=== PATIENT | female | born 1940 | race Caucasian/White ===

== ENCOUNTER 2019-04-02 22:01 | Inpatient (IN) ==
[2019-04-03] MEDS ORDERED: Naloxone 0.4 MG/ML INJ IVP PRN (00:17)
--- NOTE | 2019-04-03 01:43 | Internal Med History&Physical ---
Date of Encounter: 04/03/19 Time of Encounter: 01:42 Internal Medicine - H&P: HPI Chief complaint: Syncope History of present illness: Ms. Llamas is a 78 year old female with a past medical history of hyperlipidemia, hypertension, kidney disease, valvular heart disease and recent diagnosis of atrial fibrillation who initially presented to [facility] after a syncopal event earlier today resulting in a laceration of her scalp. Patient states that earlier today she was folding some laundry, and the next thing she knew she was on the floor. Patient is unsure or has to whether she lost consciousness or not. The only symptom she recalls prior to the incident was intermittent shortness of breath which she states has been ongoing for some time. Patient denies any chest pain, palpitations, dizziness/lightheadedness, history of blood clots or previous episodes of syncope. Further denies any orthopnea, PND, increased lower extremity edema or weight gain. No reports of one sided weakness. Her hydrochlorothiazide was discontinued last month. Patient is currently on Lasix and alternates between a 20 mg and 40 mg dose as needed. Patient was recently evaluated for new onset atrial fibrillation back in February at [facility]. Echocardiogram at that time showed an EF of 50% and valvular disease with moderate mitral stenosis, mitral regurgitation, aortic reg urgitation and severe pulmonary hypertension. Patient's metoprolol dose was increased. Eliquis was started for CVA prophylaxis but was discontinued due to history of significant bleeding on blood thinners. Patient is not on aspirin for the same reason. Patient states that she will be following with Dr. Jimenez for the first time this coming Monday. She has been seeing Dr. Cantor up to this point. At [place] patient was found to have a heart rate in the 160s with EKG demonstrating A. fib with RVR. Patient was started on a Cardizem drip. [place] were placed to the laceration on the scalp. Laboratory workup was notable for a creatinine of 1.86 and elevated troponin of 0.14. Imaging was unremarkable. Heart rate was subsequently controlled on Cardizem drip. Patient was given a one-time dose of Lasix 40 mg IV push and patient was transferred here for further evaluation. On my assessment patient was sitting upright in bed in no acute distress. Currently on Cardizem drip with heart rate in the 90s. Past Med Surg Social Fam HX - Past Medical History Medical history: hyperlipidemia, hypertension, renal disease (Chronic renal insufficiency), valvular heart disease Additional medical history: WEARS HOME 02 AT 2LPM VIA [place] Psychiatric history: no psych history - Past Surgical History Additional surgical history: WISDOM TEETH - Social History Smoking Status: Never smoker Smokeless Tobacco Status: No Alcohol use: none, rarely Drug use: none Internal Medicine - H&P: Meds Calcium Carb/Magnesium Ox,Carb [Asher-Mag Tablet Chewable] 1 tab PO DAILY 04/03/19 [History] Cod Liver Oil 1 cap PO DAILY 04/03/19 [History] Estradiol [Estrace] 1 mg PO DAILY 04/03/19 [History] Fluticasone Propionate Nasal [Flonase] 2 spr NS DAILY PRN 04/03/19 [History] Furosemide [Lasix] 20 mg PO Q48H 04/03/19 [History] Furosemide [Lasix] 40 mg PO Q48H 04/03/19 [History] Metoprolol [Lopressor] 25 mg PO HS 04/03/19 [History] Montelukast [Singulair] 10 mg PO HS 04/03/19 [History] Potassium Chloride 20 meq PO DAILY 04/03/19 [History] Zinc [Zinc Chelated] 50 mg PO DAILY 04/03/19 [History] Allergy/AdvReac Type Severity Reaction Status Date / Time apixaban [From Eliquis] AdvReac BLEEDING Verified 04/03/19 14:10 aspirin AdvReac Nose Bleed Verified 04/02/19 19:42 NSAIDS (Non-Steroidal AdvReac Nose Bleed Verified 04/02/19 19:42 Anti-Inflamma All Systems PM: A 10-system review of systems was performed and is negative for pertinent findings except as documented above in the HPI. - Constitutional Constitutional: no chills, no fever(s), no night sweats - EENT Eyes: no change in vision, no discharge, no pain, no photophobia Ears: no ear discharge, no ear pain, no tinnitus Nose, mouth and throat: no dysphagia, no nasal discharge, no neck pain, no sore throat - Cardiovascular Cardiovascular ROS IM: no chest pain, no diaphoresis, no dyspnea, no lighthead edness, no palpitations, no syncope - Respiratory Respiratory: no cough, no dyspnea, no wheezing, no excessive phlegm production - Gastrointestinal Gastrointestinal: no abdominal pain, no diarrhea, no hematemesis, no hemat ochezia, no melena, no nausea, no vomiting - Genitourinary Genitourinary: no change in urinary stream, no dysuria, no flank pain, no hematuria - Musculoskeletal Musculoskeletal ROS IM: no numbness, no tingling - Integumentary Integumentary IM: no rash, no unusual bruising - Neurological Neurological ROS: no confusion, no convulsions, no focal weakness, no numbness, no tingling, no tremor(s) - Hematologic/Lymphatic Hematologic/Lymphatic: no easy bruising - Constitutional Vitals: Temp Pulse Resp BP Pulse Ox 97.8 F 96 18 141/82 99 04/03/19 00:07 04/03/19 00:07 04/03/19 00:07 04/03/19 00:07 04/03/19 00:07 Exam: General: Alert and oriented 3 in no acute distress Skin:Normal color, no rash, no lesions. HEENT:EOM, pupils equal, round and reactive. Cardiovascular:Normal S1 & S2, no rubs, murmurs or gallops. No JVD. Pulse irregularly irregular Lungs:Normal breath sounds, left-sided basilar crackles Abdomen:Soft, non-tender, no rigidity. Extremities: 1-2+ pitting edema of the lower extremities bilaterally. Neurological:Normal cognition and motor skills. Pulses:Carotid and radial pulses normal +2. Rest of the physical exam is non contributory Internal Med - H&P Results - Labs CBC & Chem 7: 04/03/19 02:06 04/03/19 02:06 - Assessment and Plan (1) Syncope Current Visit: No Status: Acute Assessment and plan: Patient presenting with unwitnessed syncopal episode. No presyncopal symptoms aside from shortness of breath which patient states has been ongoing since at least February. Found to have atrial fibrillation with rapid ventricular response with a heart rate in the 160s. Patient also has significant underlying valvular heart disease with recent echo in February of this year showing an EF of 50% with mitral regurgitation and mitral stenosis; mild to moderate aortic regurgitation; moderate tricuspid regurgitation and severe pulmonary hypertension. Review of EKG shows atrial fibrillation with RVR. No evidence of ischemic changes on EKG. Repeat EKG performed here shows atrial fibrillation with a heart rate of 100 in the absence of any ischemic findings. Patient did have an elevated troponin of 0.14. Patient denied any chest pain. Etiology of patient's syncope likely multifactorial in the setting of A. fib with RVR and underlying valvular heart disease. Patient's elevated troponin I suspect is secondary to demand ischemia. -Telemetry -Trend troponin -We will obtain carotid duplex -Consult to cardiology Qualifiers: Syncope type: unspecified Qualified Code(s): R55 - Syncope and collapse (2) Atrial fibrillation with rapid ventricular response Current Visit: No Status: Acute Assessment and plan: Patient found to have atrial fibrillation with RVR with a heart rate in the 160s. Patient was started on a Cardizem drip at [place] and transferred here for further evaluation. Repeat EKG shows atrial fibrillation with a heart rate of 100. -Continue on Cardizem drip -We will consult cardiology for further adjustment in patient's by mouth beta b locker moving forward. (3) Acute kidney injury Current Visit: Yes Status: Acute Assessment and plan: Patient found to have a creatinine of 1.8. Baseline appears to be around 1.2. Patient received a one-time dose of Lasix 40 mg IV push at [facility]. We will reassess kidney function and hold any further diuresis for now. (4) Elevated troponin I level Current Visit: No Status: Acute Assessment and plan: Found to have a troponin of 0.14 in the setting of atrial fibrillation with RVR. -See syncope above (5) DVT prophylaxis Current Visit: Yes Status: Acute Assessment and plan: Sequential compression devices. - Time Spent With Patient Total time spent is greater than 50% in coordination of care (as documented) at patient's floor/unit and/or counseling patient:
[2019-04-03 02:55] LABS: Basophils # 0.1 K/mcL (0.0-0.2); Basophils % 0.6 %; Eosinophils # 0.2 K/mcL (0.0-0.6); Eosinophils % 1.5 %; Hematocrit 42.8 % (35.3-44.9); Hemoglobin 13.3 g/dL (11.5-15.4); Immature Granulocytes % 0.3 % (0-4); Lymphocytes # 2.1 K/mcL (0.6-4.6); Lymphocytes % 21.3 %; Mean Corpuscular HGB Conc 31.1 g/dL (31.6-35.5); Mean Corpuscular Hemoglobin 30.5 pg (28.0-33.3); Mean Corpuscular Volume 98.2 fL (83.0-100.0); Mean Platelet Volume 11.6 fL (9.4-12.4); Monocytes % 10.4 %; Neutrophils # 6.6 K/mcL (1.6-8.9); Platelet Count 221 K/mcL (140-400); Red Blood Count 4.36 M/mcL (3.82-4.97); Red Cell Distribution Width 15.9 % (11.5-14.5); Segmented Neutrophils % 65.9 %; White Blood Count 9.9 K/mcL (4.3-11.1)
[2019-04-03 03:06] LABS: Prothrombin Time 11.6 Seconds (9.4-12.1)
[2019-04-03 03:08] LABS: Activated Partial Thrombo Time 27.9 Seconds (26.0-36.0)
[2019-04-03 03:10] LABS: Albumin 3.8 g/dL (3.5-5.7); Albumin/Globulin Ratio 1.6 (1.1-2.2); Bilirubin,Total 1.1 mg/dL (0.3-1.0); Calcium 9.8 mg/dL (8.6-10.3); Chol/HDL Ratio 3.9 (0-4.9); Globulin 2.4 g/dL (2.4-3.5); Magnesium 2.3 mg/dL (1.6-2.6); Potassium 3.9 mEq/L (3.5-5.1); Total Protein 6.2 g/dL (6.4-8.9)
--- NOTE | 2019-04-03 07:54 | Event Note ---
Date of Encounter: 04/03/19 Time of Encounter: 07:51 S: Patient examined this AM. States no longer having SOB. Denies dizziness, palpitations, chest pain, n/v. Admits to edema of extremities and fullness of abdomen. O: VS: reviewed. Labs: reviewed. Physical exam shows obese female in no acute distress. HR irregularly irregular rate/rhythm. Lungs CTAB. Extremities: bilateral lower exremities with pitting edema 1+. Troponin 0.14, Cr: 1.8 now 1.6, Trop 0.14, 0.14 A/P: 1. Syncope 2. Afib with RVR 3. KENDY, CKD 4. Elevated troponin 5. History of GI bleed, not on anticoagulation for afib 6. Lower extremity edema - Cardiology consult - Carotid duplex - echocardiogram - IV Lasix 40 mg x1 and monitor renal function. 1 dose given yesterday night.
[2019-04-03] MEDS ORDERED: *HR* Metoprolol 5 MG/5 ML VIAL IVP PRN (08:08)
[2019-04-03] MEDS ORDERED: Furosemide 40 MG/4 ML VIAL IVP SCH (09:00)
[2019-04-03] MEDS: Furosemide 40 MG/4 ML VIAL IVP SCH ×2 (11:13→16:44)
--- NOTE | 2019-04-03 16:31 | Cardiology Consult Note ---
<Priscilla Cruz - Last Filed: 04/03/19 16:31> Date of Encounter: 04/03/19 Time of Encounter: 14:00 Assessment and Plan (1) Syncope Current Visit: No Status: Acute Per cardiology: -Admitted with syncopal event. -No vision changes, loss of bowel or bladder. -TTE 02/2019 with LVEF 50%, severe mitral annular calcification, moderate MR, moderate MS, mild-moderate AR, moderate TR, severe PH, no SWMA. -No acute ECG changes noted. NO events noted on telemetry. -Will repeat TTE. Qualifiers: Syncope type: unspecified Qualified Code(s): R55 - Syncope and collapse (2) Diastolic CHF Current Visit: Yes Status: Acute Per cardiology: -Patient reports orthopnea and increased shortness of breath. -Chest x-ray with PVC. -BNP elevated. -Mildly volume overloaded on exam. -On IV lasix. Currently net negative ~700ml. -Agree with IV diuresis. -STrict i/os, fluid restriction, daily weights. -CHF education reinforced. Qualifiers: Heart failure chronicity: acute on chronic Qualified Code(s): I50.33 - Acute on chronic diastolic (congestive) heart failure (3) Atrial fibrillation Current Visit: No Status: Acute Per cardiology: -Recently diagnosed a.fib. -On BB at home, states does not tolerate higher doses due to fatigue. -[id number] score 6 (age4, gender, CHF, DM, HTN), was previously on eliquis, however stopped due to rectal bleeding. Was then started on ASA, however stopped due to rectal bleeding. -On cardizem drip at 2.5mg.hour, HR currently controlled. -Will start oral cardizem, patient had previously reported allergy, however tolerating IV. Monitor closeley. -Recommend GI evaluation for rectal bleeding. -Can consider outpatient stress test for recently diagnosed a.fib. Qualifiers: Atrial fibrillation type: unspecified Qualified Code(s): I48.91 - Unspecified atrial fibrillation (4) Elevated troponin I level Current Visit: No Status: Acute Per cardiology: -Troponins 0.14x2 in the setting of CHF, a.fib. -Reports atypical pleuritic chest pain. -no acute ischemic ECG changes noted. -Not on asa due to rectal bleeding. ON BB at home. -Will repeat TTE. -Demand ischemia, no cardiac rehab consult warranted. Discussion w patient/family: The assessment and plan as outlined above was discussed with the patient who expressed understanding and agreement. All questions were answered. Thank you for involving us in the care of your patient. Please call with any questions. Discussed and reviewed with . History of Present Illness Consult date: 04/03/19 Requesting physician: Ruben Singh Consult reason: a.fib rvr, elevated troponin Chief complaint: syncope History of present illness: Ms. Llamas is a 78 year old female with a relevant past medical history of HTN, DM, HLD, CKD, valvular heart disease, anxiety, depression, ERNESTINA, CHF, who presented to [facility] with complaints of syncopal event. Patient states she was standing, folding her laundry and the next thing she remembers was waking up on the floor. Denied vision changes. Denied loss of bowel or bladder. Denied feeling dizzy or lightheaded. Does report recent diagnosis of a.fib. Denies palpitations or fluttering. Reports had rectal bleeding on eliquis and ASA. Reports increased shortness of breath and reports orthopnea. Reports some chest discomfort when she is short of breath. States chest discomfort worsens with deep inspiration. Past Med Surg Social Fam HX - Past Medical History Attestation: Yes The following information was validated with the patient. Source: patient, old records reviewed Medical history: atrial fibrillation, CHF, hyperlipidemia, hypertension, renal disease, valvular heart disease Additional medical history: WEARS HOME 02 AT 2LPM [place] Psychiatric history: no psych history - Past Surgical History Additional surgical history: WISDOM TEETH - Social History Smoking Status: Never smoker Smokeless Tobacco Status: No Alcohol use: none, rarely Drug use: none Medications and Allergies Calcium Carb/Magnesium Ox,Carb [Asher-Mag Tablet Chewable] 1 tab PO DAILY 04/03/19 [History] Cod Liver Oil 1 cap PO DAILY 04/03/19 [History] Estradiol [Estrace] 1 mg PO DAILY 04/03/19 [History] Fluticasone Propionate Nasal [Flonase] 2 spr NS DAILY PRN 04/03/19 [History] Furosemide [Lasix] 20 mg PO Q48H 04/03/19 [History] Furosemide [Lasix] 40 mg PO Q48H 04/03/19 [History] Metoprolol [Lopressor] 25 mg PO HS 04/03/19 [History] Montelukast [Singulair] 10 mg PO HS 04/03/19 [History] Potassium Chloride 20 meq PO DAILY 04/03/19 [History] Zinc [Zinc Chelated] 50 mg PO DAILY 04/03/19 [History] Allergy/AdvReac Type Severity Reaction Status Date / Time apixaban [From Eliquis] AdvReac BLEEDING Verified 04/03/19 14:10 aspirin AdvReac Nose Bleed Verified 04/02/19 19:42 NSAIDS (Non-Steroidal AdvReac Nose Bleed Verified 04/02/19 19:42 Anti-Inflamma All Systems Review: The remainder of the systems were reviewed and are negative - Cardiovascular Cardiovascular: as per HPI, chest pain at rest, dyspnea on exertion - Neurological Neurological: syncope Physical Examination Vital Signs, Last 4 Hours Temp Pulse Resp BP Pulse Ox 04/03/19 15:25 97.6 F 98 16 131/96 98 General: Conversant, No Apparent Distress HEENT: Atraumatic, Normocephaly, Mucus Membranes Moist Neck: No JVD, Normal carotid pulses Cardiac: Normal S1 and S2, No Murmur, Other (Irregularly irregular ) Lungs: Normal Breath Sounds, No Wheeze, Rales, Rhonchi Neuro: Alert and responsive, No focal deficits noted Abdomen: Soft, Non-Tender Skin: No rashes noted on visualized skin Musculoskeletal: No Chest Wall Tenderness Extremities: No Clubbing, No Cyanosis, Normal Pulses, Other (Mild bilateral lower extremity edema, non-pitting. ) Results 04/03/19 02:06 04/03/19 02:06 Lab Results Active Medications Furosemide (Lasix) 20 mg IVP BIDDIURETIC RANDI Stop: 04/04/19 17:01 Last Admin: 04/03/19 11:13 Dose: 20 mg Documented by: Diltiazem HCl 50 mg/ Sodium (Chloride) 50 mls @ 5 mls/hr IVC CONT RANDI; Protocol Stop: 10/03/19 06:16 Last Infusion: 04/03/19 11:11 Dose: 2.5 mg/hr, 2.5 mls/hr Documented by: Metoprolol Tartrate (Lopressor) 5 mg IVP Q6HR PRN PRN Reason: SEE COMMENTS Stop: 10/03/19 08:09 Last Admin: 04/03/19 11:48 Dose: 5 mg Documented by: Naloxone HCl (Narcan) 0.4 mg IVP Q2MPRN PRN PRN Reason: SEE COMMENTS Stop: 10/03/19 00:18 Laboratory Tests 03/30/19 04/02/19 04/03/19 10:13 20:05 02:06 Hgb Creatinine 1.64 H 1.86 H Troponin I 0.14 H* 0.14 H* B-Natriuretic Peptide 04/03/19 04/03/19 04/03/19 02:06 02:06 02:06 Hgb 13.3 Creatinine 1.61 H Troponin I B-Natriuretic Peptide 474 H - Imaging and Cardiology Chest Xray: report reviewed Echo: pending, report reviewed - EKG Interpretation EKG results cardiology: personally reviewed (ECG with a.fib, HR 100.), other (Telemetry reviewed with average HR previous 12 hours noted to be 96, a.fib. PVCs noted.) Consult Discharge Plan - Plan Referrals: Kristine Álvarez MD [Primary Care Provider] - <MaryTaylor - Last Filed: 04/03/19 16:54> Date of Encounter: 04/03/19 - Attending Attestation I examined this patient and my medical decision-making was reviewed with the BOARD OF DIRECTORS. I agree with the documented findings, disposition and treatment plan as described. Ms. Llamas presents with a syncopal event of unclear etiology. No acute ECG changes. No events on telemetry. Echo pending. Consider Neurologic evaluation. Does appear volume overloaded on exam. Agree with diuresis. Recently diagnosed with AFIB, heart rates now controlled. Recommend transition to PO cardizem - tolerating the drip. Recommend GI evaluation for rectal bleeding (patient reports on both Eliquis and aspirin). [id number] - need to address AC once GI workup complete. Elevated, flat adynamic troponins. May be demand ischemia. No prior ischemic workup. Consider ischemic workup once GI evaluation is complete. Assessment and Plan Discussion w patient/family: The assessment and plan as outlined above was discussed with the patient and/or family members who expressed understanding and agreement. All questions were answered. Thank you for involving us in the care of your patient. Please call with any questions. History of Present Illness History of present illness: Ms. Llamas is a 78 year old female All Systems Review: The remainder of the systems were reviewed and are negative Physical Examination Vital Signs, Last 4 Hours Temp Pulse Resp BP Pulse Ox 04/03/19 16:49 143/85 04/03/19 15:25 97.6 F 98 16 131/96 98 Results 04/03/19 02:06 04/03/19 02:06 Lab Results 04/03/19 04/03/19 04/03/19 02:06 02:06 02:06 WBC 9.9 Hgb 13.3 Hct 42.8 Plt Count 221 INR 1.0 APTT 27.9 Sodium Potassium Chloride Carbon Dioxide BUN Creatinine Glucose Calcium Magnesium Total Bilirubin AST ALT Alkaline Phosphatase Troponin I 0.14 H* B-Natriuretic Peptide 04/03/19 04/03/19 02:06 02:06 WBC Hgb Hct Plt Count INR APTT Sodium 141 Potassium 3.9 Chloride 102 Carbon Dioxide 26 BUN 50 H Creatinine 1.61 H Glucose 108 H Calcium 9.8 Magnesium 2.3 Total Bilirubin 1.1 H AST 41 H ALT 58 H Alkaline Phosphatase 75 Troponin I B-Natriuretic Peptide 474 H
[2019-04-03] MEDS: Diltiazem CD (24hr) 120 MG CAPSULE PO SCH (18:19)
[2019-04-03] MEDS ORDERED: Perflutren Lipid Microsphere 1.3 ML in 0.9 % Sodium Chloride 8.7 ML IVP ONE (18:38)
--- NOTE | 2019-04-03 19:07 | Electrocardiograph Report ---
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
[2019-04-03] MEDS: Metoprolol XL (24 HR) Succ 25 MG TAB.ER.24H PO SCH (21:57)
[2019-04-04 06:33] LABS: Basophils # 0.1 K/mcL (0.0-0.2); Basophils % 0.6 %; Eosinophils # 0.5 K/mcL (0.0-0.6); Eosinophils % 5.8 %; Hematocrit 39.5 % (35.3-44.9); Hemoglobin 12.4 g/dL (11.5-15.4); Immature Granulocytes % 0.3 % (0-4); Lymphocytes # 1.6 K/mcL (0.6-4.6); Mean Corpuscular HGB Conc 31.4 g/dL (31.6-35.5); Mean Corpuscular Hemoglobin 30.5 pg (28.0-33.3); Mean Corpuscular Volume 97.1 fL (83.0-100.0); Mean Platelet Volume 11.4 fL (9.4-12.4); Monocytes # 0.8 K/mcL (0.0-1.3); Monocytes % 10.1 %; Neutrophils # 4.9 K/mcL (1.6-8.9); Platelet Count 189 K/mcL (140-400); Red Blood Count 4.07 M/mcL (3.82-4.97); Red Cell Distribution Width 15.9 % (11.5-14.5); Segmented Neutrophils % 62.2 %; White Blood Count 7.8 K/mcL (4.3-11.1)
[2019-04-04 06:53] LABS: Calcium 9.1 mg/dL (8.6-10.3); Potassium 3.6 mEq/L (3.5-5.1)
[2019-04-04] MEDS: Diltiazem CD (24hr) 120 MG CAPSULE PO SCH (08:34)
[2019-04-04] MEDS: Furosemide 40 MG/4 ML VIAL IVP SCH ×2 (08:34→15:54)
--- NOTE | 2019-04-04 08:55 | Internal Med Progress Note ---
Hospitalist Progress Note - Encounter Date of Encounter: 04/04/19 Time of Encounter: 08:54 - Subjective Interval History: Doing well. States abdominal fullness and leg edema is slightly better. Denies any dizziness, syncope, chest pain, SOB. - Exam Vitals: Temp Pulse Resp BP Pulse Ox 97.8 F 99 17 156/89 94 04/04/19 07:22 04/04/19 07:22 04/04/19 07:22 04/04/19 07:22 04/04/19 07:22 Exam: General: Alert and oriented 3 in no acute distress Skin:Normal color, no rash, no lesions. HEENT:EOM, pupils equal, round and reactive. Cardiovascular:Normal S1 & S2, no rubs, murmurs or gallops. No JVD. Pulse irregularly irregular Lungs:Normal breath sounds, left-sided basilar crackles Abdomen:Soft, non-tender, no rigidity. Extremities: 1-2+ pitting edema of the lower extremities bilaterally. Neurological:Normal cognition and motor skills. Pulses:Carotid and radial pulses normal +2. Rest of the physical exam is non contributory - Assessment and Plan (1) Atrial fibrillation with rapid ventricular response Current Visit: No Status: Acute Assessment and Plan: Patient found to have atrial fibrillation with RVR with a heart rate in the 160s. Patient was started on a Cardizem drip at [place] and transferred here for further evaluation. Repeat EKG shows atrial fibrillation with a heart rate of 100. Cardizem drip DC'd. HR controlled with transition to PO Cardizem CD and Metoprolol XL 25 mg daily. - Cardiology on board - Repeat echo pending. (2) Syncope Current Visit: No Status: Acute Assessment and Plan: Patient presenting with unwitnessed syncopal episode. No presyncopal symptoms aside from shortness of breath which patient states has been ongoing since at least February. Found to have atrial fibrillation with rapid ventricular response wi th a heart rate in the 160s. Patient also has significant underlying valvular heart disease with recent echo in February of this year showing an EF of 50% with mitral regurgitation and mitral stenosis; mild to moderate aortic regurgitation; moderate tricuspid regurgitation and severe pulmonary hypertension. Review of EKG shows atrial fibrillation with RVR. No evidence of ischemic changes on EKG. Repeat EKG performed here shows atrial fibrillation with a heart rate of 100 in the absence of any ischemic findings. Patient did have an elevated troponin of 0.14. Patient denied any chest pain. Etiology of patient's syncope likely multifactorial in the setting of A. fib with RVR and underlying valvular heart disease. Patient's elevated troponin I suspect is secondary to demand ischemia. Carotid duplex negative. - Echocardiogram pending. (3) Elevated troponin I level Current Visit: No Status: Acute Assessment and Plan: Found to have a troponin of 0.14 in the setting of atrial fibrillation with RVR. -See syncope above (4) Acute kidney injury Current Visit: Yes Status: Acute Assessment and Plan: Patient found to have a creatinine of 1.8. Baseline appears to be around 1.2. Patient received a one-time dose of Lasix 40 mg IV push at [facility]. Patient appears slightly fluid overloaded Renal function improved today. Continue IV Lasix 20 mg BID. (5) DVT prophylaxis Current Visit: Yes Status: Acute Assessment and Plan: Sequential compression devices. - Time Spent with Patient Total time spent is greater than 50% in coordination of care (as documented) at patient's floor/unit and/or counseling patient: Internal Medicine: Result - Labs CBC & Chem 7: 04/04/19 06:17 04/04/19 06:17 Labs: Short CBC 04/04/19 Range/Units 06:17 WBC 7.8 (4.3-11.1) K/mcL Hgb 12.4 (11.5-15.4) g/dL Hct 39.5 (35.3-44.9) % Plt Count 189 (140-400) K/mcL Neutrophils # 4.9 (1.6-8.9) K/mcL BMP 04/04/19 06:17 Sodium 143 Potassium 3.6 Chloride 99 Carbon Dioxide 31 H BUN 46 H Creatinine 1.51 H Glucose 99 Calcium 9.1 - ABG Interpretation ABG results: PT/INR, D-dimer PT 11.6 Seconds (9.4-12.1) 04/03/19 02:06 Consult Discharge Plan - Plan Referrals: Kristine Álvarez MD [Primary Care Provider] - (2) Syncope Qualifiers: Syncope type: unspecified Qualified Code(s): R55 - Syncope and collapse
[2019-04-04] MEDS ORDERED: Diltiazem CD (24hr) 120 MG CAPSULE PO ONE (09:15)
--- NOTE | 2019-04-04 14:21 | Cardiology Progress Note ---
Date of Encounter: 04/04/19 Time of Encounter: 12:00 Assessment and Plan (1) Syncope Current Visit: No Status: Acute Per cardiology: -Admitted with syncopal event. -No vision changes, loss of bowel or bladder. -TTE 02/2019 with LVEF 50%, severe mitral annular calcification, moderate MR, moderate MS, mild-moderate AR, moderate TR, severe PH, no SWMA. -Repeat TTE with LVEF 40-45%, however patient was a.fib RVR during exam. -No acute ECG changes noted. NO events noted on telemetry. -Will repeat limited TTE in am with definity. Qualifiers: Syncope type: unspecified Qualified Code(s): R55 - Syncope and collapse (2) Diastolic CHF Current Visit: Yes Status: Acute Per cardiology: -Patient reports orthopnea and increased shortness of breath. -Chest x-ray with PVC. -BNP elevated. -Mildly volume overloaded on exam. -On IV lasix. Currently net negative ~500ml. Reports symptom improvement. -Agree with IV diuresis. -STrict i/os, fluid restriction, daily weights. -CHF education reinforced. Qualifiers: Heart failure chronicity: acute on chronic Qualified Code(s): I50.33 - Acute on chronic diastolic (congestive) heart failure (3) Atrial fibrillation Current Visit: No Status: Acute Per cardiology: -Recently diagnosed a.fib. -On BB at home, states does not tolerate higher doses due to fatigue. -[id number] score 6 (age4, gender, CHF, DM, HTN), was previously on eliquis, however stopped due to rectal bleeding. Was then started on ASA, however stopped due to rectal bleeding. -On cardizem CD 120mg. Average HR 107. Cardizem increased. -Increased cardizem. -Recommend GI evaluation for rectal bleeding. -Can consider outpatient stress test for recently diagnosed a.fib. Qualifiers: Atrial fibrillation type: unspecified Qualified Code(s): I48.91 - Unspecified atrial fibrillation (4) Elevated troponin I level Current Visit: No Status: Acute Per cardiology: -Troponins 0.14x2 in the setting of CHF, a.fib. -Reports atypical pleuritic chest pain. -no acute ischemic ECG changes noted. -Not on asa due to rectal bleeding. ON BB at home. -Will repeat TTE. -Demand ischemia, no cardiac rehab consult warranted. Discussion w patient/family: The assessment and plan as outlined above was discussed with the patient who expressed understanding and agreement. All questions were answered. Thank you for involving us in the care of your patient. Please call with any questions. Discussed and reviewed with Subjective Principal diagnosis: syncope Interval history: Patient states she feels a little "weird" after increased dose of cardizem. Reports shortness of breath is improved. Objective Vital Signs, Last 4 Hours Temp Pulse Resp BP Pulse Ox 04/04/19 12:14 94 142/87 04/04/19 10:51 97.4 F L 77 17 125/82 92 General: Conversant, No Apparent Distress HEENT: Atraumatic, Normocephaly, Mucus Membranes Moist Neck: No JVD, Normal carotid pulses Cardiac: Normal S1 and S2, No Murmur, Other (Irregularly irregular) Lungs: Normal Breath Sounds, No Wheeze, Rales, Rhonchi Neuro: Alert and responsive, No focal deficits noted Abdomen: Soft, Non-Tender Skin: No rashes noted on visualized skin Musculoskeletal: No Chest Wall Tenderness Extremities: No Clubbing, No Cyanosis, Normal Pulses, Other (Mild lower extremity pedal edema. ) Results 04/04/19 06:17 04/04/19 06:17 Lab Results Impressions Echocardiogram 04/03/19 15:00 Impressions: LVEF 40-45% with Afib RVR. Moderate global left ventricular systolic dysfunction. Indeterminate diastolic function. Mildly dilated right ventricle with mild right ventricular hypokinesis. Severely dilated left atrium. Moderate mitral stenosis, mean transmitral gradient is 5 mmHg at HR 115 bpm. Mild mitral regurgitation. Mild-moderate tricuspid regurgitation. Mild to moderate pulmonary hypertension. Recommend repeat limited echo for LVEF and mitral stenosis with definity after rate control. Left Ventricular Wall Motion: Rest Echo Findings The apex, apical inferior, mid inferior, basal inferior, apical anterior, mid anterior, basal anterior, apical septal, mid inferior septal, basal inferior septal, apical lateral, mid anterior lateral, basal anterior lateral, mid anterior septal, mid inferior lateral, basal anterior septal and basal inferior lateral villanueva were hypokinetic. Findings: Study Quality * Technically sub-optimal due to poor echocardiographic windows and Afib RVR. ECG Findings * Atrial fibrillation, RVR. Left Ventricle * LVEF 40-45%. * Moderate global left ventricular systolic dysfunction. * Normal LV chamber size, wall thickness. * Indeterminate diastolic function. * Definity echo contrast was not used. Right Ventricle * Mildly dilated right ventricle. * Mild right ventricular hypokinesis. Left Atrium * Severely dilated left atrium. Right Atrium * Normal right atrial size. Interatrial Septum * Interatrial septum not well evaluated. Aortic Valve * Trileaflet aortic valve. * Mildly calcified aortic valve leaflets. * No aortic stenosis. * Trace aortic regurgitation. Mitral Valve * Severely calcified mitral valve leaflets, posterior leaflet in particular. * Mild mitral regurgitation. * Moderate mitral stenosis. * Mean transmitral gradient is 5 mmHg at HR 115 bpm. Tricuspid Valve * Normal tricuspid valve structure. * No tricuspid stenosis. * Mild-moderate tricuspid regurgitation. * Unable to estimate RVSP due to lack of IVC visualization. RV-RA gradient 40 mmHg. * Mild to moderate pulmonary hypertension. Pulmonic Valve * Pulmonic valve is not well visualized. * No pulmonic stenosis. * No pulmonic regurgitation. Aorta * Aortic root not well visualized. Pericardium * The pericardium appears normal. IVC * The IVC is not well evaluated. Active Medications Diltiazem HCl (Cardizem Cd) 240 mg PO DAILY RANDI Stop: 10/05/19 09:01 Furosemide (Lasix) 20 mg IVP BIDDIURETIC RANDI Stop: 04/04/19 17:01 Last Admin: 04/04/19 08:34 Dose: 20 mg Documented by: Metoprolol Succinate (Toprol Xl) 25 mg PO HS RANDI Stop: 10/03/19 21:01 Last Admin: 04/03/19 21:57 Dose: 25 mg Documented by: Metoprolol Tartrate (Lopressor) 5 mg IVP Q6HR PRN PRN Reason: SEE COMMENTS Stop: 10/03/19 08:09 Last Admin: 04/03/19 11:48 Dose: 5 mg Documented by: Naloxone HCl (Narcan) 0.4 mg IVP Q2MPRN PRN PRN Reason: SEE COMMENTS Stop: 10/03/19 00:18 Laboratory Tests 04/04/19 04/04/19 06:17 06:17 Hgb 12.4 Creatinine 1.51 H - Imaging and Cardiology Chest Xray: report reviewed Echo: pending, report reviewed - EKG Interpretation EKG results cardiology: other (Telemetry reveiwed with average HR previous 12 hours noted to be 107, a.fib. PVCs noted.) Consult Discharge Plan - Plan Referrals: Kristine Álvarez MD [Primary Care Provider] -
[2019-04-04] MEDS: Metoprolol XL (24 HR) Succ 25 MG TAB.ER.24H PO SCH (20:08)
[2019-04-05] MEDS: Diltiazem CD (24hr) 240 MG CAPSULE PO SCH (08:28)
--- NOTE | 2019-04-05 08:46 | Internal Med Progress Note ---
Hospitalist Progress Note - Encounter Date of Encounter: 04/05/19 Time of Encounter: 11:30 - Subjective Interval History: Patient states breathing yañez she has felt better than she has in the last 3 months. Denies chest pain, denies syncope. - Exam Vitals: Temp Pulse Resp BP Pulse Ox 97.7 F 92 16 127/75 99 04/05/19 07:35 04/05/19 07:35 04/05/19 07:35 04/05/19 07:35 04/05/19 07:35 Exam: General: Alert and oriented 3 in no acute distress Skin:Normal color, no rash, no lesions. HEENT:EOM, pupils equal, round and reactive. Cardiovascular:Normal S1 & S2, no rubs, murmurs or gallops. No JVD. Pulse irregularly irregular Lungs:Normal breath sounds, left-sided basilar crackles Abdomen:Soft, non-tender, no rigidity. Extremities: 1 + bipedal pitting edema Neurological:Normal cognition and motor skills. Pulses:Carotid and radial pulses normal +2. - Assessment and Plan (1) Atrial fibrillation with rapid ventricular response Current Visit: No Status: Acute Assessment and Plan: Patient found to have atrial fibrillation with RVR with a heart rate in the 160s. Patient was started on a Cardizem drip at [place] and transferred here for further evaluation. Repeat EKG shows atrial fibrillation with a heart rate of 100. Cardizem drip DC'd. HR controlled with transition to PO Cardizem CD and Metoprolol XL 25 mg daily. - Cardiology on board - Repeat echo pending. - Cardizem CD 240 mg daily, Metoprolol XL 25 mg HS (2) Syncope Current Visit: No Status: Acute Assessment and Plan: Patient presenting with unwitnessed syncopal episode. No presyncopal symptoms aside from shortness of breath which patient states has been ongoing since at least February. Found to have atrial fibrillation with rapid ventricular response with a heart rate in the 160s. Patient also has significant underlying valvular heart disease with recent echo in February of this year showing an EF of 50% with mitral regurgitation and mitral stenosis; mild to moderate aortic regurgitation; moderate tricuspid regurgitation and severe pulmonary hypertension. Review of EKG shows atrial fibrillation with RVR. No evidence of ischemic changes on EKG. Repeat EKG performed here shows atrial fibrillation with a heart rate of 100 in the absence of any ischemic findings. Patient did have an elevated troponin of 0.14. Patient denied any chest pain. Patient's elevated troponin I suspect is secondary to demand ischemia. Carotid duplex negative. Etiology of patient's syncope likely multifactorial in the setting of A. fib with RVR and underlying valvular heart disease. Also could be vasovagal in nature. Will rule out PE. - R/P Echocardiogram pending. - V/Q scan given risk factors. - Neurology follow-up as outpatient. (3) Elevated troponin I level Current Visit: No Status: Acute Assessment and Plan: Found to have a troponin of 0.14 in the setting of atrial fibrillation with RVR. -See syncope above (4) Acute kidney injury Current Visit: Yes Status: Acute Assessment and Plan: Patient found to have a creatinine of 1.8. Baseline appears to be around 1.2- 1.8 . Patient received a one-time dose of Lasix 40 mg IV push at [facility]. Patient appears slightly fluid overloaded Renal function cr rangin 1.5-1.6 which could be new chel Is currently getting Lasix 20 mg IV BID, but will try to transition patient to 40 mg PO BID. She refuses AM labs tomorrow. (5) DVT prophylaxis Current Visit: Yes Status: Acute Assessment and Plan: Sequential compression devices. (6) Rectal bleed Current Visit: Yes Status: Acute Assessment and Plan: This was a one time episode when she was started on Eliquis in the past. She is currently hemodynamically stable and hemoglobin here is at baseline 12.4-12.3. Discussed with patient outpatient GI workup. She declines any sort of anticoagulation. (7) Heart failure with reduced ejection fraction and diastolic dysfunction Current Visit: Yes Status: Acute Assessment and Plan: Continue Lasix BID Continue metoprolol Add lisinopril as BP tolerates. - Time Spent with Patient Total time spent is greater than 50% in coordination of care (as documented) at patient's floor/unit and/or counseling patient: Internal Medicine: Result - Labs CBC & Chem 7: 04/05/19 08:38 04/05/19 09:44 - ABG Interpretation ABG results: PT/INR, D-dimer PT 11.6 Seconds (9.4-12.1) 04/03/19 02:06 - Impressions Impressions Echocardiogram 04/03/19 15:00 Impressions: LVEF 40-45% with Afib RVR. Moderate global left ventricular systolic dysfunction. Indeterminate diastolic function. Mildly dilated right ventricle with mild right ventricular hypokinesis. Severely dilated left atrium. Moderate mitral stenosis, mean transmitral gradient is 5 mmHg at HR 115 bpm. Mild mitral regurgitation. Mild-moderate tricuspid regurgitation. Mild to moderate pulmonary hypertension. Recommend repeat limited echo for LVEF and mitral stenosis with definity after rate control. Left Ventricular Wall Motion: Rest Echo Findings The apex, apical inferior, mid inferior, basal inferior, apical anterior, mid anterior, basal anterior, apical septal, mid inferior septal, basal inferior septal, apical lateral, mid anterior lateral, basal anterior lateral, mid anterior septal, mid inferior lateral, basal anterior septal and basal inferior lateral villanueva were hypokinetic. Findings: Study Quality * Technically sub-optimal due to poor echocardiographic windows and Afib RVR. ECG Findings * Atrial fibrillation, RVR. Left Ventricle * LVEF 40-45%. * Moderate global left ventricular systolic dysfunction. * Normal LV chamber size, wall thickness. * Indeterminate diastolic function. * Definity echo contrast was not used. Right Ventricle * Mildly dilated right ventricle. * Mild right ventricular hypokinesis. Left Atrium * Severely dilated left atrium. Right Atrium * Normal right atrial size. Interatrial Septum * Interatrial septum not well evaluated. Aortic Valve * Trileaflet aortic valve. * Mildly calcified aortic valve leaflets. * No aortic stenosis. * Trace aortic regurgitation. Mitral Valve * Severely calcified mitral valve leaflets, posterior leaflet in particular. * Mild mitral regurgitation. * Moderate mitral stenosis. * Mean transmitral gradient is 5 mmHg at HR 115 bpm. Tricuspid Valve * Normal tricuspid valve structure. * No tricuspid stenosis. * Mild-moderate tricuspid regurgitation. * Unable to estimate RVSP due to lack of IVC visualization. RV-RA gradient 40 mmHg. * Mild to moderate pulmonary hypertension. Pulmonic Valve * Pulmonic valve is not well visualized. * No pulmonic stenosis. * No pulmonic regurgitation. Aorta * Aortic root not well visualized. Pericardium * The pericardium appears normal. IVC * The IVC is not well evaluated. Consult Discharge Plan - Plan Referrals: Kristine Álvarez MD [Primary Care Provider] - (2) Syncope Qualifiers: Syncope type: unspecified Qualified Code(s): R55 - Syncope and collapse
[2019-04-05 08:50] LABS: Basophils # 0.1 K/mcL (0.0-0.2); Basophils % 0.7 %; Eosinophils # 0.4 K/mcL (0.0-0.6); Eosinophils % 5.5 %; Hematocrit 41.5 % (35.3-44.9); Immature Granulocytes % 0.4 % (0-4); Lymphocytes # 1.5 K/mcL (0.6-4.6); Lymphocytes % 19.9 %; Mean Corpuscular HGB Conc 31.3 g/dL (31.6-35.5); Mean Corpuscular Hemoglobin 30.5 pg (28.0-33.3); Mean Corpuscular Volume 97.4 fL (83.0-100.0); Mean Platelet Volume 11.5 fL (9.4-12.4); Monocytes # 0.7 K/mcL (0.0-1.3); Monocytes % 9.5 %; Platelet Count 134 K/mcL (140-400); Red Blood Count 4.26 M/mcL (3.82-4.97); Red Cell Distribution Width 15.8 % (11.5-14.5); White Blood Count 7.6 K/mcL (4.3-11.1)
[2019-04-05 09:17] LABS: Neutrophils # 4.9 K/mcL (1.6-8.9)
[2019-04-05] MEDS ORDERED: Perflutren Lipid Microsphere 1.3 ML in 0.9 % Sodium Chloride 8.7 ML IVP ONE (09:52)
[2019-04-05] MEDS ORDERED: Perflutren Lipid Microsphere 2 ML VIAL ONE (10:15)
[2019-04-05 11:15] LABS: Calcium 8.9 mg/dL (8.6-10.3); Potassium 3.7 mEq/L (3.5-5.1)
--- NOTE | 2019-04-05 12:33 | Cardiology Progress Note ---
Date of Encounter: 04/05/19 Time of Encounter: 12:30 Assessment and Plan (1) Syncope Current Visit: No Status: Acute Per cardiology: -Admitted with syncopal event. -No vision changes, loss of bowel or bladder. -TTE 02/2019 with LVEF 50%, severe mitral annular calcification, moderate MR, moderate MS, mild-moderate AR, moderate TR, severe PH, no SWMA. -Repeat TTE with LVEF 40-45%, however patient was a.fib RVR during exam. -LImited TTE was repeated today with LVEF 45%, mild global LV systolic dysfunction. -No acute ECG changes noted. NO events noted on telemetry. -Consider neurology consultation. -Discussed and reviewed with , with mild reduction in LVEF, recommend medical management only at this time. Patient with reported rectal bleeding even with ASA. Consider addition of joe/arb prior to discharge. -Cardiology will sign off, will arrange outpatient follow up. Qualifiers: Syncope type: unspecified Qualified Code(s): R55 - Syncope and collapse (2) Diastolic CHF Current Visit: Yes Status: Acute Per cardiology: -Patient reports orthopnea and increased shortness of breath on admission. States symptoms improved. -Chest x-ray with PVC. -BNP elevated. -Mildly volume overloaded on exam, improved. -On IV lasix. Currently net negative ~500ml. Reports symptom improvement. -Patient reports was taking 20mg alternating with 40mg lasix at home. Recommend lasix 40mg daily at discharge. -STrict i/os, fluid restriction, daily weights. -CHF education reinforced. Qualifiers: Heart failure chronicity: acute on chronic Qualified Code(s): I50.33 - Acute on chronic diastolic (congestive) heart failure (3) Atrial fibrillation Current Visit: No Status: Acute Per cardiology: -Recently diagnosed a.fib. -On BB at home, states does not tolerate higher doses due to fatigue. -[id number] score 6 (age4, gender, CHF, DM, HTN), was previously on eliquis, however stopped due to rectal bleeding. Was then started on ASA, however stopped due to rectal bleeding. -On cardizem CD 240mg. Average HR 86. -Continue cardizem and BB. -Recommend GI evaluation for rectal bleeding. -Can consider outpatient stress test for recently diagnosed a.fib. Qualifiers: Atrial fibrillation type: unspecified Qualified Code(s): I48.91 - Unspecified atrial fibrillation (4) Elevated troponin I level Current Visit: No Status: Acute Per cardiology: -Troponins 0.14x2 in the setting of CHF, a.fib. -Reports atypical pleuritic chest pain. -no acute ischemic ECG changes noted. -Not on asa due to rectal bleeding. ON BB at home. -Limited TTE with LVEF 45%, mild global LV systolic dysfunction. -Demand ischemia, no cardiac rehab consult warranted. Discussion w patient/family: The assessment and plan as outlined above was discussed with the patient who expressed understanding and agreement. All questions were answered. Thank you for involving us in the care of your patient. Please call with any questions. Discussed and reviewed with Subjective Principal diagnosis: syncope Interval history: Patient states no side effects from circumflex. Reports shortness of breath and edema is improved. Objective Vital Signs, Last 4 Hours Temp Pulse Resp BP Pulse Ox 04/05/19 11:12 97.5 F L 83 16 117/79 96 General: Conversant, No Apparent Distress HEENT: Atraumatic, Normocephaly, Mucus Membranes Moist Neck: No JVD, Normal carotid pulses Cardiac: Normal S1 and S2, No Murmur, Other (Irregularly irregular) Lungs: Normal Breath Sounds, No Wheeze, Rales, Rhonchi Neuro: Alert and responsive, No focal deficits noted Abdomen: Soft, Non-Tender Skin: No rashes noted on visualized skin Musculoskeletal: No Chest Wall Tenderness Extremities: No Clubbing, No Cyanosis, Normal Pulses, Other (Mild bilateral pedal edema noted, non-pitting. ) Results 04/05/19 08:38 04/05/19 09:44 Lab Results Active Medications Diltiazem HCl (Cardizem Cd) 240 mg PO DAILY RANDI Stop: 10/05/19 09:01 Last Admin: 04/05/19 08:28 Dose: 240 mg Documented by: Metoprolol Succinate (Toprol Xl) 25 mg PO HS RANDI Stop: 10/03/19 21:01 Last Admin: 04/04/19 20:08 Dose: 25 mg Documented by: Metoprolol Tartrate (Lopressor) 5 mg IVP Q6HR PRN PRN Reason: SEE COMMENTS Stop: 10/03/19 08:09 Last Admin: 04/03/19 11:48 Dose: 5 mg Documented by: Naloxone HCl (Narcan) 0.4 mg IVP Q2MPRN PRN PRN Reason: SEE COMMENTS Stop: 10/03/19 00:18 Laboratory Tests 04/05/19 04/05/19 08:38 09:44 Hgb 13.0 Creatinine 1.63 H - Imaging and Cardiology Chest Xray: report reviewed Echo: report reviewed - EKG Interpretation EKG results cardiology: other (Telemetry reviewed with average HR previous 12 hours noted to be 84, a.fib. PVCs noted.) Consult Discharge Plan - Plan Referrals: Kristine Álvarez MD [Primary Care Provider] -
[2019-04-05] MEDS ORDERED: Fluticasone Propionate Nasal 50 MCG/SPRAY BOTTLE NS PRN ×2 (14:04→14:08)
[2019-04-05] MEDS: Furosemide 40 MG TABLET PO SCH (18:07)
[2019-04-05] MEDS: Metoprolol XL (24 HR) Succ 25 MG TAB.ER.24H PO SCH (21:59)
--- NOTE | 2019-04-06 07:30 | Internal Med Progress Note ---
Hospitalist Progress Note - Encounter Date of Encounter: 04/06/19 - Exam Vitals: Temp Pulse Resp BP Pulse Ox 97.6 F 77 17 141/86 99 04/06/19 06:48 04/06/19 06:48 04/06/19 06:48 04/06/19 06:48 04/06/19 06:48 - Assessment and Plan (1) Atrial fibrillation with rapid ventricular response Current Visit: No Status: Acute (2) Syncope Current Visit: No Status: Acute (3) Elevated troponin I level Current Visit: No Status: Acute (4) Acute kidney injury Current Visit: Yes Status: Acute (5) DVT prophylaxis Current Visit: Yes Status: Acute (6) Rectal bleed Current Visit: Yes Status: Acute (7) Heart failure with reduced ejection fraction and diastolic dysfunction Current Visit: Yes Status: Acute - Time Spent with Patient Total time spent is greater than 50% in coordination of care (as documented) at patient's floor/unit and/or counseling patient: Internal Medicine: Result - Labs CBC & Chem 7: 04/05/19 08:38 04/05/19 09:44 Labs: Short CBC 04/05/19 Range/Units 08:38 WBC 7.6 (4.3-11.1) K/mcL Hgb 13.0 (11.5-15.4) g/dL Hct 41.5 (35.3-44.9) % Plt Count 134 L (140-400) K/mcL Neutrophils # 4.9 (1.6-8.9) K/mcL BMP 04/05/19 09:44 Sodium 142 Potassium 3.7 Chloride 100 Carbon Dioxide 30 H BUN 38 H Creatinine 1.63 H Glucose 102 Calcium 8.9 - ABG Interpretation ABG results: PT/INR, D-dimer PT 11.6 Seconds (9.4-12.1) 04/03/19 02:06 Consult Discharge Plan - Plan Referrals: Kristine Álvarez MD [Primary Care Provider] - (2) Syncope Qualifiers: Syncope type: unspecified Qualified Code(s): R55 - Syncope and collapse
[2019-04-06] MEDS: Furosemide 40 MG TABLET PO SCH (07:39)
[2019-04-06] MEDS: Diltiazem CD (24hr) 240 MG CAPSULE PO SCH (07:40)
[2019-04-06] MEDS ORDERED: Zinc Sulfate 220 MG CAPSULE PO SCH (09:00)
[2019-04-06] MEDS ORDERED: Magnesium Oxide 400 MG TABLET PO SCH (09:00)
--- NOTE | 2019-04-06 10:17 | Discharge Summary ---
- NOTES TO OUTPATIENT PROVIDER Notes to Outpatient Provider: - Recommended follow-up with GI as outpatient for Lower GIB. Patient refuses for now and will decide about an outpatient visit. - Recommend Neurology visit as outpatient. Instructed if passing out again needs to go to ED immediately. - Repeat BMP and dose adjust Lasix as needed. 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 Llamas is a 78 year old female with a past medical history of hyperlipidemia, hypertension, kidney disease, valvular heart disease and recent diagnosis of atrial fibrillation who initially presented to [facility] after a syncopal event earlier today resulting in a laceration of her scalp. Patient states that she was folding some laundry, and suddenly passed out. She had a brief intermittent shortness of breath which she states has been ongoing for some time. She complains of worsening peripheral edema and weight gain slowly since December. She had no reports of one sided weakness, chest pain, n/v, diaphoresis, numbness/tingling. Her hydrochlorothiazide was discontinued last month. Prior to admission on Lasix and alternates between a 20 mg and 40 mg dose as needed. Patient was recently evaluated for new onset atrial fibrillation back in February at [facility]. Echocardiogram at that time showed an EF of 50% and valvular disease with moderate mitral stenosis, mitral regurgitation, aortic regurgitation and severe pulmonary hypertension. Patient's metoprolol dose was increased at that time. Eliquis was started for CVA prophylaxis but was discontinued due to history of significant bleeding on blood thinners. Patient is not on aspirin for the same reason. At [place] patient was found to have a heart rate in the 160s with EKG demonstrating A. fib with RVR. Patient was started on a Cardizem drip. Veronica were placed to the laceration on the scalp. Laboratory workup was notable for a creatinine of 1.86 and elevated troponin of 0.14. Imaging was unremarkable. Heart rate was subsequently controlled on Cardizem drip. Patient was given a one-time dose of Lasix 40 mg IV push and patient was transferred here to [facility] for further evaluation. Troponin was trended and was stable. A Carotid duplex done was negative. A repeat echocardiogram showed LVEF 45%. Cardiology evalua gui patient and this is most likely vasovagal syncope, not cardiogenic. She had some fluid overload needing two days of IV Lasix and was able to transition to PO Lasix. She declined a VQ scan to rule out PE (No CTA due to renal function), her Well's score was low probability for PE. Patient declines any anticoagulation of any sort because of adverse side effects. She is aware of risks and benefits of anticoagulation. She has follow-up with Dr. Cervantes in 3 days and plans to follow-up. Recommend PCP follow-up for suture removal. To do: - Adjust Lasix as necessary, refused BMP on last day of admission, recommend obtaining BMP. - GI evaluation for LGIB, refuses inpatient evaluation. - Consider Neuro evaluation, though symptoms and presentation are highly suggestive of vasovagal syncope. - Time Spent with Patient Total time spent providing and/or coordinating discharge services: - Discharge Medications Prescriptions: New Diltiazem CD (24hr) [Cardizem CD] 240 mg PO DAILY #30 cap.er.24h Furosemide [Lasix] 40 mg PO DAILY #7 tablet Lisinopril [Zestril] 2.5 mg PO DAILY #7 tablet Continued Metoprolol [Lopressor] 25 mg PO HS Montelukast [Singulair] 10 mg PO HS Fluticasone Propionate Nasal [Flonase] 2 spr NS DAILY PRN PRN Reason: Allergic Reaction Zinc [Zinc Chelated] 50 mg PO DAILY Cod Liver Oil 1 cap PO DAILY Calcium Carb/Magnesium Ox,Carb [Asher-Mag Tablet Chewable] 1 tab PO DAILY Potassium Chloride 20 meq PO DAILY Discontinued Estradiol [Estrace] 1 mg PO DAILY Furosemide [Lasix] 40 mg PO Q48H Furosemide [Lasix] 20 mg PO Q48H Home Medications: Calcium Carb/Magnesium Ox,Carb [Asher-Mag Tablet Chewable] 1 tab PO DAILY 04/03/19 [History] Cod Liver Oil 1 cap PO DAILY 04/03/19 [History] Fluticasone Propionate Nasal [Flonase] 2 spr NS DAILY PRN 04/03/19 [History] Metoprolol [Lopressor] 25 mg PO HS 04/03/19 [History] Montelukast [Singulair] 10 mg PO HS 04/03/19 [History] Potassium Chloride 20 meq PO DAILY 04/03/19 [History] Zinc [Zinc Chelated] 50 mg PO DAILY 04/03/19 [History] Diltiazem CD (24hr) [Cardizem CD] 240 mg PO DAILY #30 cap.er.24h 04/06/19 [Rx] Furosemide [Lasix] 40 mg PO DAILY #7 tablet 04/06/19 [Rx] Lisinopril [Zestril] 2.5 mg PO DAILY #7 tablet 04/06/19 [Rx] Allergies/Adverse Reactions: Allergy/AdvReac Type Severity Reaction Status Date / Time apixaban [From Eliquis] AdvReac BLEEDING Verified 04/03/19 14:10 aspirin AdvReac Nose Bleed Verified 04/02/19 19:42 NSAIDS (Non-Steroidal AdvReac Nose Bleed Verified 04/02/19 19:42 Anti-Inflamma Date of admission: 04/03/19 23:41 Primary care physician: Kristine Álvarez Consults: 04/03/19 12:07 Consult to Cardiology [CONS] Routine Comment: Consulting Provider: [facility] [place] Reason for Consult: Afib RVR, troponin Call Completed: No Discharging clinician: Ruben Singh - Constitutional Vitals: Temp Pulse Resp BP Pulse Ox 97.6 F 77 17 141/86 99 04/06/19 06:48 04/06/19 06:48 04/06/19 06:48 04/06/19 06:48 04/06/19 06:48 Exam: Gen: NAD, AAO x3 Head: laceration with sutures on top of scalp in tact, no active drainage or bleeding. ENT: MMM, no LA CVS: irregular rhythm, rate normal Lungs: improved, CTAB Abd: Soft, NT/ND Ext: 1+ bipedal pitting edema, slightly better than yesterday. - Patient Status Disposition: Home, Self-Care Condition: Undetermined Functional capacity at discharge: independent ambulation Overall status at discharge: patient is progressing back to baseline - Discharge Instructions Follow Up With: Kristine Álvarez MD [Primary Care Provider] - - Diet and Activity Activity: increase activity as tolerated Diet: advance to your usual diet
[2019-04-06 10:48] VITALS: BP 120/78
--- NOTE | 2019-04-06 14:12 | Physician Discharge Referral ---
Home Health/Hosp Referral Info Transfer to: Home Health Provider in Charge Post Discharge: PCP - Diagnosis (1) Syncope Priority: Primary Status: Acute (2) Atrial fibrillation with rapid ventricular response Priority: Secondary Status: Acute (3) Elevated troponin I level Priority: Secondary Status: Acute (4) Acute kidney injury Priority: Secondary Status: Acute (5) DVT prophylaxis Priority: Secondary Status: Acute (6) Rectal bleed Priority: Secondary Status: Acute (7) Heart failure with reduced ejection fraction and diastolic dysfunction Priority: Secondary Status: Acute - Respiratory Orders Smoking Cessation: Smoking cessation has been advised. For more information, call the [place] Tobacco Quit Line at 3-595-FGBC-NOW. - Services Needed Following services are medically necessary services: Nursing, Home Health Aide, Physical Therapy, Occupational Therapy - Transfer Medications Prescriptions: Diltiazem CD (24hr) [Cardizem CD] 240 mg PO DAILY #30 cap.er.24h Furosemide [Lasix] 40 mg PO DAILY #7 tablet Lisinopril [Zestril] 2.5 mg PO DAILY #7 tablet Home Medications: Calcium Carb/Magnesium Ox,Carb [Asher-Mag Tablet Chewable] 1 tab PO DAILY 04/03/19 [History] Cod Liver Oil 1 cap PO DAILY 04/03/19 [History] Fluticasone Propionate Nasal [Flonase] 2 spr NS DAILY PRN 04/03/19 [History] Metoprolol [Lopressor] 25 mg PO HS 04/03/19 [History] Montelukast [Singulair] 10 mg PO HS 04/03/19 [History] Potassium Chloride 20 meq PO DAILY 04/03/19 [History] Zinc [Zinc Chelated] 50 mg PO DAILY 04/03/19 [History] Diltiazem CD (24hr) [Cardizem CD] 240 mg PO DAILY #30 cap.er.24h 04/06/19 [Rx] Furosemide [Lasix] 40 mg PO DAILY #7 tablet 04/06/19 [Rx] Lisinopril [Zestril] 2.5 mg PO DAILY #7 tablet 04/06/19 [Rx] Allergies/Adverse Reactions: Allergy/AdvReac Type Severity Reaction Status Date / Time apixaban [From Eliquis] AdvReac BLEEDING Verified 04/03/19 14:10 aspirin AdvReac Nose Bleed Verified 06/18/19 19:42 NSAIDS (Non-Steroidal AdvReac Nose Bleed Verified 04/02/19 19:42 Anti-Inflamma Certification: Further, I certify that my clinical findings support that this patient is homebound (i.e. absences from home require considerable and taxing effort and are for medical reasons or quaker services or infrequently or short duration when for other reasons) because: Homebound Reason: Patient requires assistance of a person or device to safely leave home, Leaving home requires considerable and taxing effort due to condition Attestation: My signature below is to certify that this patient is under my care and that I, or nurse practitioner, or a physician's technical administrative assistant working with me, has a [id number] encounter with this patient.
== END 2019-04-06 12:29 | disposition home or self-care (01) | DRG 308 ==
LOC: 2ANU → SUATTDRO 23:53
PROVIDERS: ADMIT Internal Medicine; ATTEND Student in an Organized Health Care Education/Training Program

== ENCOUNTER 2019-07-26 15:54 | Inpatient (IN) ==
[2019-07-26] MEDS ORDERED: *HR* Metoprolol 5 MG/5 ML VIAL IVP ONE (20:53)
[2019-07-26] MEDS ORDERED: Metoprolol XL (24 HR) Succ 50 MG TAB.ER.24H PO SCH (21:00)
[2019-07-26] MEDS ORDERED: Diltiazem CD (24hr) 120 MG CAPSULE PO SCH (21:00)
[2019-07-26] MEDS: 0.9 % Sodium Chloride 1,000 ML IVC SCH (21:09)
[2019-07-27 05:21] LABS: Calcium 8.3 mg/dL (8.6-10.3); Magnesium 1.9 mg/dL (1.6-2.6); Phosphorous 3.8 mg/dL (2.7-4.5); Potassium 5.5 mEq/L (3.5-5.1)
[2019-07-27] MEDS: 0.9 % Sodium Chloride 1,000 ML IVC SCH (06:19)
[2019-07-27] MEDS: *HR* Heparin 5,000 UNIT/ML VIAL SQ SCH ×2 (07:04→17:09)
[2019-07-27] MEDS ORDERED: 0.9 % Sodium Chloride 500 ML IVC ONE (07:39)
[2019-07-27] MEDS: Acetaminophen 325 MG TABLET PO PRN (09:17)
[2019-07-27] MEDS: Metoprolol XL (24 HR) Succ 25 MG TAB.ER.24H PO SCH (10:50)
[2019-07-27] MEDS: Diltiazem CD (24hr) 120 MG CAPSULE PO SCH (10:51)
[2019-07-27 11:26] LABS: Hemoglobin 11.3 g/dL (11.5-15.4); Mean Corpuscular HGB Conc 30.5 g/dL (31.6-35.5); Mean Corpuscular Hemoglobin 30.2 pg (28.0-33.3); Mean Corpuscular Volume 98.9 fL (83.0-100.0); Mean Platelet Volume 11.1 fL (9.4-12.4); Platelet Count 179 K/mcL (140-400); Red Blood Count 3.74 M/mcL (3.82-4.97); Red Cell Distribution Width 17.2 % (11.5-14.5); White Blood Count 8.9 K/mcL (4.3-11.1)
[2019-07-27] MEDS: Gabapentin 100 MG CAPSULE PO SCH ×2 (15:27→20:08)
[2019-07-27] MEDS: *HR* HYDROcodone/Acet 5/325 mg TABLET PO PRN (15:27)
[2019-07-27 15:52] LABS: Calcium 8.2 mg/dL (8.6-10.3); Potassium 4.9 mEq/L (3.5-5.1)
[2019-07-27] MEDS ORDERED: Metoprolol XL (24 HR) Succ 25 MG TAB.ER.24H PO SCH (21:00)
[2019-07-27] MEDS ORDERED: Diltiazem CD (24hr) 120 MG CAPSULE PO SCH (21:00)
[2019-07-27] MEDS ORDERED: *HR* LORazepam 0.5 MG TABLET PO ONE (22:16)
[2019-07-28] MEDS: *HR* Heparin 5,000 UNIT/ML VIAL SQ SCH ×2 (06:26→17:44)
[2019-07-28 08:11] LABS: Calcium 8.5 mg/dL (8.6-10.3); Potassium 4.5 mEq/L (3.5-5.1)
[2019-07-28] MEDS: *HR* HYDROcodone/Acet 5/325 mg TABLET PO PRN ×2 (10:09→21:57)
[2019-07-28] MEDS: Diltiazem CD (24hr) 120 MG CAPSULE PO SCH (10:09)
[2019-07-28] MEDS: Gabapentin 100 MG CAPSULE PO SCH ×3 (10:09→21:56)
[2019-07-28] MEDS: Metoprolol XL (24 HR) Succ 25 MG TAB.ER.24H PO SCH (10:09)
[2019-07-29 05:44] LABS: Calcium 8.5 mg/dL (8.6-10.3); Potassium 4.8 mEq/L (3.5-5.1)
[2019-07-29] MEDS: *HR* Heparin 5,000 UNIT/ML VIAL SQ SCH ×2 (06:38→17:24)
[2019-07-29] MEDS: Diltiazem CD (24hr) 120 MG CAPSULE PO SCH (10:00)
[2019-07-29] MEDS: Metoprolol XL (24 HR) Succ 25 MG TAB.ER.24H PO SCH (10:00)
[2019-07-29] MEDS: Gabapentin 100 MG CAPSULE PO SCH ×3 (10:00→20:52)
[2019-07-29] MEDS: *HR* HYDROcodone/Acet 5/325 mg TABLET PO PRN (14:43)
[2019-07-29] MEDS ORDERED: Haloperidol Oral Conc 10 MG/5 ML UDC PO PRN (16:10)
[2019-07-29] MEDS ORDERED: *HR* LORazepam 0.5 MG TABLET PO PRN (16:10)
[2019-07-29] MEDS: Acetaminophen 325 MG TABLET PO PRN (20:51)
[2019-07-30] MEDS: *HR* HYDROcodone/Acet 5/325 mg TABLET PO PRN ×3 (00:32→17:10)
[2019-07-30] MEDS: *HR* Heparin 5,000 UNIT/ML VIAL SQ SCH ×2 (05:59→18:13)
[2019-07-30 07:11] LABS: Calcium 8.6 mg/dL (8.6-10.3); Potassium 4.9 mEq/L (3.5-5.1)
[2019-07-30] MEDS: Gabapentin 100 MG CAPSULE PO SCH ×3 (07:50→20:46)
[2019-07-30] MEDS: Diltiazem CD (24hr) 120 MG CAPSULE PO SCH (07:50)
[2019-07-30] MEDS: Sennosides/Docusate Sodium TABLET PO SCH (07:50)
[2019-07-30] MEDS: Metoprolol XL (24 HR) Succ 25 MG TAB.ER.24H PO SCH (07:50)
[2019-07-30] MEDS: Acetaminophen 325 MG TABLET PO PRN ×2 (15:23→20:46)
[2019-07-31] MEDS: *HR* Heparin 5,000 UNIT/ML VIAL SQ SCH ×2 (04:25→16:50)
[2019-07-31 05:33] LABS: Hematocrit 36.1 % (35.3-44.9); Mean Corpuscular HGB Conc 30.5 g/dL (31.6-35.5); Mean Corpuscular Hemoglobin 30.6 pg (28.0-33.3); Mean Corpuscular Volume 100.6 fL (83.0-100.0); Mean Platelet Volume 11.5 fL (9.4-12.4); Platelet Count 202 K/mcL (140-400); Red Blood Count 3.59 M/mcL (3.82-4.97); Red Cell Distribution Width 17.2 % (11.5-14.5); White Blood Count 6.8 K/mcL (4.3-11.1)
[2019-07-31] MEDS: Diltiazem CD (24hr) 120 MG CAPSULE PO SCH (07:46)
[2019-07-31] MEDS: Sennosides/Docusate Sodium TABLET PO SCH (07:46)
[2019-07-31] MEDS: Gabapentin 100 MG CAPSULE PO SCH ×3 (07:46→19:30)
[2019-07-31] MEDS: *HR* HYDROcodone/Acet 5/325 mg TABLET PO PRN ×2 (07:46→16:50)
[2019-07-31] MEDS: Metoprolol XL (24 HR) Succ 25 MG TAB.ER.24H PO SCH (07:46)
[2019-07-31 08:25] LABS: Calcium 8.6 mg/dL (8.6-10.3); Potassium 5.2 mEq/L (3.5-5.1)
[2019-07-31] MEDS: Acetaminophen 325 MG TABLET PO PRN ×2 (12:58→18:52)
[2019-08-01] MEDS: *HR* HYDROcodone/Acet 5/325 mg TABLET PO PRN ×3 (04:43→21:43)
[2019-08-01] MEDS: *HR* Heparin 5,000 UNIT/ML VIAL SQ SCH ×2 (04:43→17:24)
[2019-08-01 07:28] LABS: Albumin 2.7 g/dL (3.5-5.7); Calcium 9.1 mg/dL (8.6-10.3); Phosphorous 3.4 mg/dL (2.7-4.5); Potassium 5.1 mEq/L (3.5-5.1)
[2019-08-01] MEDS: Metoprolol XL (24 HR) Succ 25 MG TAB.ER.24H PO SCH (07:52)
[2019-08-01] MEDS: Diltiazem CD (24hr) 120 MG CAPSULE PO SCH (07:52)
[2019-08-01] MEDS: Acetaminophen 325 MG TABLET PO PRN ×2 (07:53→18:50)
[2019-08-01] MEDS: Sennosides/Docusate Sodium TABLET PO SCH (07:53)
[2019-08-01] MEDS: Gabapentin 100 MG CAPSULE PO SCH ×3 (07:53→21:43)
[2019-08-01 09:17] LABS: Hematocrit 36.1 % (35.3-44.9); Hemoglobin 10.9 g/dL (11.5-15.4); Mean Corpuscular HGB Conc 30.2 g/dL (31.6-35.5); Mean Corpuscular Hemoglobin 30.4 pg (28.0-33.3); Mean Platelet Volume 10.4 fL (9.4-12.4); Platelet Count 261 K/mcL (140-400); Red Blood Count 3.58 M/mcL (3.82-4.97); Red Cell Distribution Width 17.5 % (11.5-14.5); White Blood Count 7.5 K/mcL (4.3-11.1)
[2019-08-01 09:36] LABS: Mean Corpuscular Volume 100.8 fL (83.0-100.0)
[2019-08-01] MEDS ORDERED: Diltiazem SR (12hr) 60 MG CAPSULE PO ONE (11:04)
[2019-08-02 05:41] LABS: Hematocrit 34.6 % (35.3-44.9); Hemoglobin 10.8 g/dL (11.5-15.4); Mean Corpuscular HGB Conc 31.2 g/dL (31.6-35.5); Mean Corpuscular Hemoglobin 31.2 pg (28.0-33.3); Mean Platelet Volume 10.6 fL (9.4-12.4); Platelet Count 266 K/mcL (140-400); Red Blood Count 3.46 M/mcL (3.82-4.97); Red Cell Distribution Width 17.7 % (11.5-14.5); White Blood Count 6.2 K/mcL (4.3-11.1)
[2019-08-02] MEDS: *HR* Heparin 5,000 UNIT/ML VIAL SQ SCH (06:48)
[2019-08-02] MEDS ORDERED: Diltiazem CD (24hr) 180 MG CAPSULE PO SCH (09:00)
[2019-08-02] MEDS: Metoprolol XL (24 HR) Succ 25 MG TAB.ER.24H PO SCH (09:09)
[2019-08-02] MEDS: Sennosides/Docusate Sodium TABLET PO SCH (09:09)
[2019-08-02] MEDS: Gabapentin 100 MG CAPSULE PO SCH ×2 (09:09→15:45)
[2019-08-02] MEDS: *HR* HYDROcodone/Acet 5/325 mg TABLET PO PRN (11:19)
[2019-08-02 11:39] VITALS: BP 109/69
[2019-08-02] MEDS: Acetaminophen 325 MG TABLET PO PRN (15:43)
== END 2019-08-02 16:29 | DRG 683 ==
LOC: 2ANU → SUATTDRO 17:39
PROVIDERS: ADMIT Internal Medicine; ATTEND Internal Medicine

== ENCOUNTER 2019-09-25 01:08 | Inpatient (IN) ==
[2019-09-25] MEDS ORDERED: Naloxone 0.4 MG/ML INJ IVP PRN (05:48)
[2019-09-25 06:28] LABS: Hemoglobin 11.9 g/dL (11.5-15.4); Mean Corpuscular HGB Conc 31.3 g/dL (31.6-35.5); Mean Corpuscular Hemoglobin 32.3 pg (28.0-33.3); Mean Corpuscular Volume 103.3 fL (83.0-100.0); Mean Platelet Volume 10.8 fL (9.4-12.4); Platelet Count 274 K/mcL (140-400); Red Blood Count 3.68 M/mcL (3.82-4.97); Red Cell Distribution Width 15.2 % (11.5-14.5); White Blood Count 10.8 K/mcL (4.3-11.1)
[2019-09-25 06:50] LABS: Calcium 9.4 mg/dL (8.6-10.3); Magnesium 2.3 mg/dL (1.6-2.6); Phosphorous 5.5 mg/dL (2.7-4.5); Potassium 3.7 mEq/L (3.5-5.1)
[2019-09-25] MEDS ORDERED: Haloperidol Oral Conc 10 MG/5 ML UDC PO PRN (08:10)
[2019-09-25] MEDS: Diltiazem CD (24hr) 180 MG CAPSULE PO SCH (10:03)
[2019-09-25] MEDS: Sennosides 8.6 MG TABLET PO SCH ×2 (10:03→21:46)
[2019-09-25] MEDS: *HR* LORazepam 0.5 MG TABLET PO SCH ×3 (10:03→21:47)
[2019-09-25] MEDS: Gabapentin 100 MG CAPSULE PO SCH ×3 (10:03→21:46)
[2019-09-25] MEDS: Metoprolol XL (24 HR) Succ 25 MG TAB.ER.24H PO SCH (10:03)
[2019-09-25 13:05] LABS: VBG HCO3 30 mEq/L (21-27); VBG PCO2 48 mmHg (41-51); VBG PH 7.41 pH Units (7.32-7.42); VBG PO2 72 mmHg (25-50)
[2019-09-25 13:18] LABS: INR 1.7; Prothrombin Time 19.1 Seconds (9.4-12.1)
[2019-09-25 13:22] LABS: Albumin 3.5 g/dL (3.5-5.7); Albumin/Globulin Ratio 1.2 (1.1-2.2); Bilirubin,Direct 0.9 mg/dL (0.0-0.2); Bilirubin,Indirect 1.1 mg/dL (0.0-1.0); Total Protein 6.5 g/dL (6.4-8.9)
[2019-09-25 13:26] LABS: Bilirubin,Urine Negative (Negative); Blood,Urine Negative (Negative); Clarity,Urine Cloudy (Clear); Color,Urine Yellow (Yellow); Glucose,Urine (UA) Normal (Normal); Ketones,Urine Negative (Negative); Leukocyte Esterase,Urine Small (Negative); Nitrite,Urine Positive (Negative); PH,Urine 5.5 pH Units (5.0-8.0); Protein,Urine Negative (Neg-Trace); Specific Gravity,Urine 1.013 (1.010-1.025); Urobilinogen,Urine Normal (Normal)
[2019-09-25 13:29] LABS: Bacteria,Urine Moderate per hpf (None-Few); Hyaline Casts,Urine None Seen per lpf (None-Few); RBC,Urine 0-3 per hpf (0-3); Squamous Epithelial Cell,Urine Many per lpf (None-Few)
[2019-09-25 13:37] LABS: Troponin I 0.04 ng/mL (< 0.04)
[2019-09-25] MEDS: Bumetanide 1 MG/4 ML VIAL IVP SCH (16:07)
[2019-09-25] MEDS ORDERED: Bumetanide 1 MG TABLET PO SCH (17:00)
[2019-09-25] MEDS: *HR* Heparin 5,000 UNIT/ML VIAL SQ SCH (17:25)
[2019-09-25] MEDS: Lactulose Oral Soln 20 GM/30 ML UDC PO SCH (21:46)
[2019-09-26 01:26] LABS: Basophils # 0.1 K/mcL (0.0-0.2); Basophils % 0.9 %; Eosinophils # 0.4 K/mcL (0.0-0.6); Eosinophils % 4.9 %; Hematocrit 34.6 % (35.3-44.9); Hemoglobin 10.7 g/dL (11.5-15.4); Immature Granulocytes % 0.5 % (0-4); Lymphocytes # 1.7 K/mcL (0.6-4.6); Mean Corpuscular HGB Conc 30.9 g/dL (31.6-35.5); Mean Corpuscular Hemoglobin 31.9 pg (28.0-33.3); Mean Corpuscular Volume 103.3 fL (83.0-100.0); Mean Platelet Volume 10.8 fL (9.4-12.4); Monocytes # 1.1 K/mcL (0.0-1.3); Monocytes % 13.2 %; Neutrophils # 4.8 K/mcL (1.6-8.9); Nucleated Red Blood Cells 0.5 /100 WBC (0); Platelet Count 238 K/mcL (140-400); Red Blood Count 3.35 M/mcL (3.82-4.97); Red Cell Distribution Width 15.2 % (11.5-14.5); Segmented Neutrophils % 59.5 %; White Blood Count 8.1 K/mcL (4.3-11.1)
[2019-09-26 01:43] LABS: Calcium 9.3 mg/dL (8.6-10.3); Magnesium 2.1 mg/dL (1.6-2.6); Phosphorous 4.5 mg/dL (2.7-4.5); Potassium 3.3 mEq/L (3.5-5.1)
[2019-09-26 05:18] LABS: Hepatitis B Surface Antigen Nonreactive (Nonreactive)
[2019-09-26 05:52] LABS: Hepatitis A Antibody IgM Nonreactive (Nonreactive); Hepatitis C Virus Antibody Nonreactive (Nonreactive)
[2019-09-26 05:53] LABS: Hepatitis B Core IgM Nonreactive (Nonreactive)
[2019-09-26] MEDS: *HR* Heparin 5,000 UNIT/ML VIAL SQ SCH ×2 (05:59→18:28)
[2019-09-26] MEDS: Lactulose Oral Soln 20 GM/30 ML UDC PO SCH ×2 (09:02→20:05)
[2019-09-26] MEDS: Bumetanide 1 MG/4 ML VIAL IVP SCH ×2 (09:02→18:41)
[2019-09-26] MEDS: *HR* LORazepam 0.5 MG TABLET PO SCH ×3 (09:03→20:05)
[2019-09-26] MEDS: Diltiazem CD (24hr) 180 MG CAPSULE PO SCH (09:03)
[2019-09-26] MEDS: Sennosides 8.6 MG TABLET PO SCH ×2 (09:03→20:06)
[2019-09-26] MEDS: Metoprolol XL (24 HR) Succ 25 MG TAB.ER.24H PO SCH (09:03)
[2019-09-26] MEDS: Gabapentin 100 MG CAPSULE PO SCH ×3 (09:03→20:06)
[2019-09-26 11:53] LABS: Calcium 9.2 mg/dL (8.6-10.3); Magnesium 2.1 mg/dL (1.6-2.6); Phosphorous 4.2 mg/dL (2.7-4.5); Potassium 3.1 mEq/L (3.5-5.1)
[2019-09-26] MEDS ORDERED: Bumetanide 1 MG TABLET PO ONE (18:34)
[2019-09-27] MEDS: *HR* Heparin 5,000 UNIT/ML VIAL SQ SCH ×2 (06:14→20:09)
[2019-09-27 07:26] LABS: Calcium 8.5 mg/dL (8.6-10.3); Magnesium 1.9 mg/dL (1.6-2.6); Phosphorous 3.7 mg/dL (2.7-4.5)
[2019-09-27] MEDS: Gabapentin 100 MG CAPSULE PO SCH ×3 (09:26→20:09)
[2019-09-27] MEDS: Metoprolol XL (24 HR) Succ 25 MG TAB.ER.24H PO SCH (09:26)
[2019-09-27] MEDS: Diltiazem CD (24hr) 180 MG CAPSULE PO SCH (09:26)
[2019-09-27] MEDS: *HR* LORazepam 0.5 MG TABLET PO SCH ×3 (09:26→20:09)
[2019-09-27] MEDS: Sennosides 8.6 MG TABLET PO SCH ×2 (09:26→20:09)
[2019-09-27] MEDS: Lactulose Oral Soln 20 GM/30 ML UDC PO SCH ×2 (10:03→20:09)
[2019-09-27] MEDS: Bumetanide 1 MG/4 ML VIAL IVP SCH ×2 (10:04→16:18)
[2019-09-27] MEDS ORDERED: Levalbuterol Neb 1.25 MG/3 ML IH PRN (10:38)
[2019-09-28 04:17] LABS: Albumin 3.4 g/dL (3.5-5.7); Albumin/Globulin Ratio 1.1 (1.1-2.2); Bilirubin,Direct 0.3 mg/dL (0.0-0.2); Bilirubin,Indirect 0.5 mg/dL (0.0-1.0); Bilirubin,Total 0.8 mg/dL (0.3-1.0); Calcium 8.7 mg/dL (8.6-10.3); Globulin 3.2 g/dL (2.4-3.5); Magnesium 1.7 mg/dL (1.6-2.6); Phosphorous 2.9 mg/dL (2.7-4.5); Potassium 3.5 mEq/L (3.5-5.1); Total Protein 6.6 g/dL (6.4-8.9)
[2019-09-28] MEDS: *HR* Heparin 5,000 UNIT/ML VIAL SQ SCH ×2 (05:16→17:24)
[2019-09-28 07:11] LABS: Bilirubin,Urine Negative (Negative); Blood,Urine Negative (Negative); Clarity,Urine Cloudy (Clear); Color,Urine Yellow (Yellow); Glucose,Urine (UA) Normal (Normal); Ketones,Urine Negative (Negative); Leukocyte Esterase,Urine Large (Negative); Nitrite,Urine Positive (Negative); Protein,Urine Negative (Neg-Trace); Specific Gravity,Urine 1.016 (1.010-1.025); Urobilinogen,Urine Normal (Normal)
[2019-09-28 07:13] LABS: Bacteria,Urine Many per hpf (None-Few); Hyaline Casts,Urine None Seen per lpf (None-Few); Squamous Epithelial Cell,Urine Many per lpf (None-Few); WBC,Urine TNTC per hpf (0-3)
[2019-09-28] MEDS: Metoprolol XL (24 HR) Succ 25 MG TAB.ER.24H PO SCH (09:31)
[2019-09-28] MEDS: Bumetanide 1 MG/4 ML VIAL IVP SCH ×3 (09:31→18:46)
[2019-09-28] MEDS: Gabapentin 100 MG CAPSULE PO SCH ×3 (09:31→20:34)
[2019-09-28] MEDS: Lactulose Oral Soln 20 GM/30 ML UDC PO SCH (09:31)
[2019-09-28] MEDS: Sennosides 8.6 MG TABLET PO SCH ×2 (09:31→20:34)
[2019-09-28] MEDS: Diltiazem CD (24hr) 180 MG CAPSULE PO SCH (09:31)
[2019-09-28] MEDS: *HR* LORazepam 0.5 MG TABLET PO SCH ×3 (09:31→20:34)
[2019-09-28] MEDS: Albumin 25% 25gram/100mL 25 GM/100 ML IV.SOLN IVC SCH ×2 (12:52→14:50)
[2019-09-28] MEDS ORDERED: Ondansetron ODT 4 MG TAB.RAPDIS PO PRN (16:25)
[2019-09-28] MEDS ORDERED: Fluticasone Propionate Nasal 50 MCG/SPRAY BOTTLE NS PRN (16:25)
[2019-09-28] MEDS: Bumetanide 1 MG TABLET PO SCH (22:27)
[2019-09-29] MEDS: Bumetanide 1 MG TABLET PO SCH ×2 (05:25→16:37)
[2019-09-29] MEDS: *HR* Heparin 5,000 UNIT/ML VIAL SQ SCH ×2 (05:26→17:20)
[2019-09-29] MEDS: *HR* LORazepam 0.5 MG TABLET PO SCH ×3 (07:54→20:57)
[2019-09-29] MEDS: Gabapentin 100 MG CAPSULE PO SCH ×3 (07:54→20:57)
[2019-09-29] MEDS: Metoprolol XL (24 HR) Succ 25 MG TAB.ER.24H PO SCH (07:54)
[2019-09-29] MEDS: *HR* HYDROcodone/Acet 5/325 mg TABLET PO PRN ×2 (07:54→16:36)
[2019-09-29] MEDS: Diltiazem CD (24hr) 180 MG CAPSULE PO SCH (07:54)
[2019-09-29] MEDS: Sennosides 8.6 MG TABLET PO SCH ×2 (07:54→20:57)
[2019-09-29 09:42] LABS: Calcium 9.1 mg/dL (8.6-10.3); Magnesium 1.6 mg/dL (1.6-2.6); Phosphorous 2.7 mg/dL (2.7-4.5); Potassium 3.6 mEq/L (3.5-5.1)
[2019-09-29] MEDS ORDERED: metOLazone 5 MG TABLET PO ONE (12:09)
[2019-09-30] MEDS: Bumetanide 1 MG TABLET PO SCH (05:32)
[2019-09-30] MEDS: *HR* Heparin 5,000 UNIT/ML VIAL SQ SCH (05:35)
[2019-09-30 05:39] LABS: Basophils # 0.1 K/mcL (0.0-0.2); Basophils % 0.8 %; Eosinophils # 0.7 K/mcL (0.0-0.6); Eosinophils % 11.1 %; Hematocrit 35.4 % (35.3-44.9); Hemoglobin 10.8 g/dL (11.5-15.4); Immature Granulocytes % 0.5 % (0-4); Lymphocytes # 1.4 K/mcL (0.6-4.6); Lymphocytes % 24.2 %; Mean Corpuscular HGB Conc 30.5 g/dL (31.6-35.5); Mean Corpuscular Hemoglobin 31.6 pg (28.0-33.3); Mean Corpuscular Volume 103.5 fL (83.0-100.0); Mean Platelet Volume 10.2 fL (9.4-12.4); Monocytes # 0.7 K/mcL (0.0-1.3); Monocytes % 12.1 %; Platelet Count 239 K/mcL (140-400); Red Blood Count 3.42 M/mcL (3.82-4.97); Red Cell Distribution Width 15.2 % (11.5-14.5); Segmented Neutrophils % 51.3 %; White Blood Count 5.9 K/mcL (4.3-11.1)
[2019-09-30 05:59] LABS: Calcium 8.8 mg/dL (8.6-10.3); Magnesium 1.8 mg/dL (1.6-2.6); Phosphorous 3.4 mg/dL (2.7-4.5); Potassium 3.5 mEq/L (3.5-5.1)
[2019-09-30] MEDS ORDERED: metOLazone 5 MG TABLET PO SCH (09:00)
[2019-09-30] MEDS: *HR* LORazepam 0.5 MG TABLET PO SCH ×2 (10:21→17:00)
[2019-09-30] MEDS: Gabapentin 100 MG CAPSULE PO SCH ×2 (10:21→15:40)
[2019-09-30] MEDS: Sennosides 8.6 MG TABLET PO SCH (10:21)
[2019-09-30] MEDS: Diltiazem CD (24hr) 180 MG CAPSULE PO SCH (10:21)
[2019-09-30] MEDS: Metoprolol XL (24 HR) Succ 25 MG TAB.ER.24H PO SCH (10:21)
[2019-09-30] MEDS ORDERED: *HR* LORazepam 0.5 MG TABLET PO PRN (15:17)
[2019-09-30 16:52] VITALS: BP 116/75
== END 2019-09-30 19:05 | DRG 280 ==
LOC: CDU → SUATTDRO 02:44 → 2NENU 05:30
PROVIDERS: ADMIT Family Medicine; ATTEND Internal Medicine